=== PATIENT | male | born 1995 | race Caucasian/White ===

== ENCOUNTER 2020-12-06 15:38 | Emergency (ER) | payer OTHER ==
[~2020-12-06] VITALS: Ht 180.3 cm; Wt 113.4 kg
[2020-12-06 15:45] VITALS: BP_SYST 126
--- NOTE | 2020-12-06 15:53 | NUR ---
AMBULATED TO BED 5
[2020-12-06] MEDS ORDERED: NACL 0.9% 1,000 ML IV ONE (16:00)
[2020-12-06] MEDS ORDERED: ONDANSETRON HCL 4 MG/2 ML VIAL IVP ONE (16:00)
--- NOTE | 2020-12-06 16:10 | NUR ---
PT CAME IN FROM HOME WITH ABD PAIN, N/V/D. STATES THAT HE THINKS HE ATE UNDER COOKED PORK LAST NIGHT AFTER MAKING DINNER. HE PRESENTS AAOX4, AMBULATORY, V/S STABLE
--- NOTE | 2020-12-06 16:36 | NUR ---
ER DR. MADRIGAL AT THE BEDSIDE EXAMINING PT
[2020-12-06 16:50] LABS: BASOPHILS % (AUTO) 0.1 % (0.0-2.0); EOSINOPHILS # (AUTO) 0.1 K/uL (0.0-0.4); EOSINOPHILS % (AUTO) 0.3 % (0.0-4.0); HEMATOCRIT 48.6 % (36-54); HEMOGLOBIN 16.8 g/dL (14.0-18.0); LYMPHOCYTES # (AUTO) 0.4 K/uL (1.0-5.5); LYMPHOCYTES % (AUTO) 2.6 % (20.5-51.5); MEAN CORPUSCULAR HEMOGLOBIN 29 pg (27-31); MEAN CORPUSCULAR HGB CONC 35 % (32-36); MEAN CORPUSCULAR VOLUME 85 fL (79.0-98.0); MONOCYTES # (AUTO) 0.6 K/uL (0.0-1.0); MONOCYTES % (AUTO) 3.6 % (1.7-9.3); NEUTROPHILS # (AUTO) 15.2 K/uL (1.8-7.7); NEUTROPHILS % (AUTO) 93.4 % (40.0-70.0); PLATELET COUNT (AUTO) 208 K/uL (130-430); RED BLOOD CELL COUNT(AUTO) 5.71 MIL/uL (4.2-6.2); RED CELL DISTRIBUTION WIDTH 13.2 % (9.0-15.0); WHITE BLOOD COUNT (AUTO) 16.3 K/uL (4.8-10.8)
[2020-12-06 16:59] LABS: CALCIUM 8.9 mg/dL (8.4-11.0); CREATININE 0.93 mg/dL (0.55-1.30); POTASSIUM 4.2 mmol/L (3.5-5.1)
[2020-12-06 17:05] LABS: ALBUMIN 4.2 g/dL (3.4-4.8); TOTAL BILIRUBIN 0.5 mg/dL (0.0-1.0)
[2020-12-06] MEDS ORDERED: ONDA4TAB5 PO (17:35)
[2020-12-06] MEDS ORDERED: CIPR500T5 PO (17:36)
[2020-12-06] MEDS ORDERED: CIPROFLOXACIN HCL 500 MG TABLET PO ONE (17:45)
[2020-12-06 17:54] VITALS: BP_SYST 126
--- NOTE | 2020-12-06 17:56 | NUR ---
Patient given written and verbal discharge instructions and verbalizes understanding. ER MD discussed with patient the results and treatment provided. Patient in stable condition. ID arm band removed. IV catheter removed intact and dressing applied, no active bleeding. Rx of CIPRO given. Patient educated on pain management and to follow up with PMD. Pain Scale 0/10. Opportunity for questions provided and answered. Medication side effect fact sheet provided.
== END 2020-12-06 17:56 | disposition home or self-care (01) ==
LOC: SED 15:38
DX: A05.9 Bacterial foodborne intoxication, unspecified (principal); R11.2 Nausea with vomiting, unspecified; Z88.6 Allergy status to analgesic agent; Z20.822 Contact with and (suspected) exposure to COVID-19
CPT/HCPCS: 36415; 80053; 83690; 85025; 87426; 96361; 96374; 99283; J2405; J7030